=== PATIENT | male | born 1950 | race Caucasian/White ===

== ENCOUNTER → 2017-04-25 | Outpatient (CLI) | payer MEDICARE, OTHER ==
--- NOTE | ~2017-04-25 | PUL ---
PATIENT'S NAME: SHLOMO LYON [facility] AGE: 67 Y [address] ROOM: [place] [address] LOCATION: [facility] ADMIT DATE: 04/25/2017 Pulmonary DISCHARGE DATE: FAMILY PHYSICIAN: Ronald Acosta MD ATTENDING PHYSICIAN: Ronald Acosta NAME OF PROCEDURE: Sleep Study PROCEDURE DATE: 04/25/17 TECH: TANNER Jean TEST #: [facility] [place]# [id number] TECHNICAL PARAMETERS: The patient was studied using International 10/20 measuring system. While the patient was studied, there was continuous monitoring of EEG (8 leads), EOG (2 leads), EKG (3 leads), submental EMG (3 leads), tibial (4 leads), respiratory inductive plethysmography (RIP) for thoracic and abdominal effort, oral and nasal airflow with a thermocouple and pressure transducer, and oximetry. The racking technician also performed visual and auditory observations noting things like body position, patient's status, breath sounds, artifact, snoring level and patient comments. Continuous sound was monitored using a 2-way speaker system and video monitoring was performed using an infrared camera. Review of the entire study was performed epoch by epoch utilizing a single epoch and multiple epoch capability sleep system. MEDICAL HISTORY: The patient is a 67-year-old overweight man with daytime sleepiness and snoring. SLEEP STAGE SUMMARY: The patient was studied for 464 minutes which he slept 344 minutes. He fell asleep in 5 minutes and slept for 74% of the night. Sleep architecture revealed a decline in slow wave and REM sleep. RESPIRATORY SUMMARY: Oxygen saturations ranged from 65% to 95%. Prior to initiating CPAP there were 33 apneas and 16 hypopneas. CPAP was initiated and titrated to 10 cm with good control of the respiratory events. EKG SUMMARY: Average heart rate 68 beats per minute. No dysrhythmias were noted. LIMB MOVEMENT SUMMARY: No clinically relevant periodic limb movements were noted. SUMMARY: Obstructive sleep apnea responsive to CPAP at 10 cm. PATIENT'S NAME: SHLOMO LYON [facility] AGE: 67 Y [address] ROOM: [place] [address] LOCATION: [facility] ADMIT DATE: 04/25/2017 Pulmonary DISCHARGE DATE: FAMILY PHYSICIAN: Ronald Acosta MD ATTENDING PHYSICIAN: Ronald Acosta PLAN: Suggest CPAP at 10 cm. DERRELL BEASLEY MD /[id number] dtt: 05/10/17 0805 Gamaliel David E. dtd: 04/27/17 1543
== END | disposition disaster alternative care site (69) ==
LOC: GSLP 20:37
DX: G47.10 Hypersomnia, unspecified (principal); G47.33 Obstructive sleep apnea (adult) (pediatric); R53.83 Other fatigue